=== PATIENT | male | born 1960 | race Two or more races ===

== ENCOUNTER 2017-03-17 13:46 | Inpatient (IN) | payer BC ==
[~2017-03-17] VITALS: Ht 185.4 cm; Wt 93.3 kg
[2017-03-17 14:23] LABS: HEMATOCRIT 32.6 % (38.0-50.0); MCH 30.8 PG (29.0-34.0); MCV 88.1 FL (86-99); MEAN PLAT.VOLUME 9.6 uM^3 (9.0-12.4); NRBC (%) 0.3 /100 WBC (0-0); PLATELET COUNT 225 K/uL (156-360); RBC DIS.WIDTH-CV 12.7 % (11.8-14.6); RBC DIS.WIDTH-SD 40.8 % (39-53); WHITE BLOOD COUNT 11.8 K/uL (4.1-10.2)
[2017-03-17 14:37] LABS: CHLORIDE 103 mEq/L (99-109); POTASSIUM 3.9 mEq/L (3.7-5.4); SODIUM 135 mEq/L (136-147)
[2017-03-17 14:40] LABS: GLUCOSE 142 mg/dL (70-99)
[2017-03-17 14:41] LABS: ANION GAP 10 MEQ/L (2-14)
[2017-03-17 14:42] LABS: TOTAL BILIRUBIN 0.4 mg/dL (0.0-1.0)
[2017-03-17 14:43] LABS: ALKALINE PHOSPHATASE 47 IU/L (3-129); GFR ESTIMATE (CALCULATED) > 59 mL/min/
[2017-03-17 14:45] LABS: UREA NITROGEN (BUN) 25 mg/dL (9-23)
[2017-03-17 14:47] LABS: LIPASE 29 U/L (1.0-51.0)
[2017-03-17 15:49] LABS: ADD MIUA? NO; BILIRUBIN NEGATIVE; BLOOD NEGATIVE; COLOR YELLOW ((YELLOW)); GLUCOSE (STRIP) NEGATIVE; KETONES 5; LEUKOCYTES NEGATIVE; NITRITE NEGATIVE; PROTEIN (STRIP) NEGATIVE; UCUL ADDED? NO; UROBILINOGEN 0.2 MG/DL (0.2-1.0)
[2017-03-17 18:34] LABS: POINT-OF-CARE METER ID UU13113800
[2017-03-17 20:57] VITALS: BP 135/80
[2017-03-17 23:48] VITALS: BP 106/67
[2017-03-18 02:45] LABS: HEMATOCRIT 25.7 % (38.0-50.0); MCH 30.9 PG (29.0-34.0); MCV 88.3 FL (86-99); MEAN PLAT.VOLUME 9.5 uM^3 (9.0-12.4); NRBC (%) 0.7 /100 WBC (0-0); PLATELET COUNT 187 K/uL (156-360); RBC DIS.WIDTH-CV 12.9 % (11.8-14.6); RBC DIS.WIDTH-SD 41.1 % (39-53)
[2017-03-18 02:46] LABS: RED BLOOD COUNT 2.91 M/uL (4.00-5.50); WHITE BLOOD COUNT 5.6 K/uL (4.1-10.2)
[2017-03-18 02:51] LABS: INTER. NORMALIZED RATIO 1.1; PROTHROMBIN TIME 11.2 (9.2-11.2); PTT 27.3 (25-32)
[2017-03-18 02:56] LABS: TROP-I INTERPRETATION NEGATIVE; TROPONIN-I < 0.01 ng/mL (0.0-0.30)
[2017-03-18 03:51] VITALS: BP 101/59
[2017-03-18 04:17] LABS: IRON 106 MCG/DL (35-150)
[2017-03-18 07:30] LABS: FERRITIN 197 NG/ML (22-322)
[2017-03-18 08:00] VITALS: BP 112/71
[2017-03-18 11:17] VITALS: BP 110/63
[2017-03-18 14:03] LABS: HEMATOCRIT 28.4 % (38.0-50.0); MCH 31.5 PG (29.0-34.0); MCHC 34.9 G/DL (30.0-36.0); MCV 90.4 FL (86-99); MEAN PLAT.VOLUME 9.6 uM^3 (9.0-12.4); NRBC (%) 0.6 /100 WBC (0-0); PLATELET COUNT 223 K/uL (156-360); RBC DIS.WIDTH-CV 13.3 % (11.8-14.6); RBC DIS.WIDTH-SD 42.9 % (39-53); RED BLOOD COUNT 3.14 M/uL (4.00-5.50); WHITE BLOOD COUNT 4.9 K/uL (4.1-10.2)
[2017-03-18 20:05] VITALS: BP 124/84
[2017-03-18 23:36] VITALS: BP 108/64
[2017-03-19 02:04] LABS: HEMATOCRIT 25.8 % (38.0-50.0); MCHC 34.9 G/DL (30.0-36.0); MEAN PLAT.VOLUME 9.4 uM^3 (9.0-12.4); NRBC (%) 0.4 /100 WBC (0-0); PLATELET COUNT 187 K/uL (156-360); WHITE BLOOD COUNT 5.1 K/uL (4.1-10.2)
[2017-03-19 03:53] VITALS: BP 101/59
[2017-03-19 06:28] LABS: HEMATOCRIT 26.9 % (38.0-50.0); MCH 31.6 PG (29.0-34.0); MCHC 34.9 G/DL (30.0-36.0); MCV 90.6 FL (86-99); MEAN PLAT.VOLUME 9.6 uM^3 (9.0-12.4); NRBC (%) 0.4 /100 WBC (0-0); PLATELET COUNT 207 K/uL (156-360); RBC DIS.WIDTH-CV 13.2 % (11.8-14.6); RBC DIS.WIDTH-SD 42.9 % (39-53); RED BLOOD COUNT 2.97 M/uL (4.00-5.50); WHITE BLOOD COUNT 5.1 K/uL (4.1-10.2)
[2017-03-19 06:52] LABS: ANION GAP 6 MEQ/L (2-14); CHLORIDE 109 MEQ/L (99-109); GFR ESTIMATE (CALCULATED) > 59 mL/min/; POTASSIUM 3.7 MEQ/L (3.7-5.4); SAMPLE HEMOLYSIS CHECK 0; SAMPLE ICTERIC CHECK 0; SAMPLE LIPEMIA CHECK 0; UREA NITROGEN (BUN) 9 mg/dL (9-23)
[2017-03-19 06:56] LABS: GLUCOSE 95 mg/dL (70-99); SODIUM 142 MEQ/L (136-147)
[2017-03-19 07:07] VITALS: BP 122/71
[2017-03-19 14:29] LABS: HEMATOCRIT 27.8 % (38.0-50.0); MCH 32.1 PG (29.0-34.0); MCHC 35.3 G/DL (30.0-36.0); MCV 91.1 FL (86-99); MEAN PLAT.VOLUME 9.5 uM^3 (9.0-12.4); NRBC (%) 0.6 /100 WBC (0-0); PLATELET COUNT 226 K/uL (156-360); RBC DIS.WIDTH-CV 13.4 % (11.8-14.6); RBC DIS.WIDTH-SD 43.8 % (39-53); RED BLOOD COUNT 3.05 M/uL (4.00-5.50); WHITE BLOOD COUNT 5.3 K/uL (4.1-10.2)
[2017-03-19 15:43] VITALS: BP 106/57
[2017-03-19 23:34] VITALS: BP 109/55
[2017-03-20] VITALS (7 sets, daily range): BP systolic 104–151; BP diastolic 65–90
[2017-03-20 06:30] LABS: HEMATOCRIT 25.6 % (38.0-50.0); MCH 31.6 PG (29.0-34.0); MCHC 34.8 G/DL (30.0-36.0); MCV 90.8 FL (86-99); MEAN PLAT.VOLUME 9.6 uM^3 (9.0-12.4); NRBC (%) 0.4 /100 WBC (0-0); PLATELET COUNT 223 K/uL (156-360); RBC DIS.WIDTH-CV 13.4 % (11.8-14.6); RBC DIS.WIDTH-SD 42.9 % (39-53); RED BLOOD COUNT 2.82 M/uL (4.00-5.50); WHITE BLOOD COUNT 4.8 K/uL (4.1-10.2)
[2017-03-20 15:43] LABS: HEMATOCRIT 32.3 % (38.0-50.0); MCV 90.5 FL (86-99)
[2017-03-21 06:32] LABS: HEMATOCRIT 28.6 % (38.0-50.0); MCH 31.3 PG (29.0-34.0); MCV 89.4 FL (86-99); MEAN PLAT.VOLUME 9.3 uM^3 (9.0-12.4); NRBC (%) 0.6 /100 WBC (0-0); PLATELET COUNT 238 K/uL (156-360); RBC DIS.WIDTH-CV 13.7 % (11.8-14.6); RBC DIS.WIDTH-SD 42.5 % (39-53); WHITE BLOOD COUNT 4.8 K/uL (4.1-10.2)
[2017-03-21 07:50] VITALS: BP 139/76
[2017-03-21] MEDS ORDERED: SUCRALFATE1 GM/10 ML GT (08:39)
[2017-03-21] MEDS ORDERED: PANTOPRAZOLE SO40 MG PO (08:39)
[2017-03-21] MEDS ORDERED: FERROUS SULFAT325 MG PO (08:39)
== END 2017-03-21 11:15 | disposition home or self-care (01) | DRG 381 ==
LOC: EME 13:46 → 5EAST 19:17 → EDOF 19:17 → 5EAST 20:50
PROVIDERS: Hospitalist; Physician Assistant Medical; Specialist
PROC: 0D538ZZ Destruction of Lower Esophagus, Via Natural or Artificial Opening Endoscopic (ICD-10-PCS; principal; 2017-03-18)
PROC: 30233N1 Transfusion of Nonautologous Red Blood Cells into Peripheral Vein, Percutaneous Approach (ICD-10-PCS; 2017-03-20)
DX: K22.11 Ulcer of esophagus with bleeding (principal); D62 Acute posthemorrhagic anemia; E87.1 Hypo-osmolality and hyponatremia; K29.70 Gastritis, unspecified, without bleeding; K29.80 Duodenitis without bleeding; K22.70 Barrett's esophagus without dysplasia; K44.9 Diaphragmatic hernia without obstruction or gangrene; R55 Syncope and collapse; K59.00 Constipation, unspecified; Z87.891 Personal history of nicotine dependence
CPT/HCPCS: 70450; 80048; 80053; 81003; 82728; 82948; 83540; 83690; 84466; 84484; 85014; 85018; 85027; 85610; 85730; 86900; 86901; 86920; 93005; 99281; 99284; C9113; J7030; P9016